=== PATIENT | female | born 1995 | race American Indian/Alaskan Native ===

== ENCOUNTER 2016-12-06 06:00 | Emergency (ER) | payer SELFPAY ==
[2016-12-06 06:40] LABS: Basophils % (Auto) 0.4 % (0.0-1.8); Eosinophils % (Auto) 2.4 % (0.0-4.3); Hematocrit 41.2 % (30.3-42.9); Hemoglobin 14.1 gm/dl (10.1-14.3); Mean Corpuscular HGB Conc 34 % (30-34); Mean Corpuscular Hemoglobin 31 pg (28-32); Mean Corpuscular Volume 89 fl (79-97); Platelet Count 218 K/mm3 (140-440); Red Blood Count 4.61 M/mm3 (3.65-5.03); Red Cell Distribution Width 13.1 % (13.2-15.2); White Blood Count 9.5 K/mm3 (4.5-11.0)
[2016-12-06 07:09] LABS: Alanine Aminotransferase 13 units/L (7-56); Albumin 3.8 g/dL (3.9-5); Albumin/Globulin Ratio 1.2 %; Alkaline Phosphatase 41 units/L (35-129); Anion Gap 17 mmol/L; Bilirubin,Total 0.2 mg/dL (0.1-1.2); Blood Urea Nitrogen 7 mg/dL (7-17); Calcium 8.8 mg/dL (8.4-10.2); Carbon Dioxide 25 mmol/L (22-30); Chloride 98.2 mmol/L (98-107); Glucose 96 mg/dL (65-100); Lipase 37 units/L (13-60); Potassium 4.4 mmol/L (3.6-5.0); Sodium 136 mmol/L (137-145); Total Protein 6.9 g/dL (6.3-8.2)
--- NOTE | 2016-12-06 08:40 | Ultrasound Report ---
ULTRASOUND OB LESS THAN 14 WEEKS HISTORY: Abdominal pain during . FINDINGS: Transabdominal imaging was performed. The uterus is anteverted and measures 13 x 9 x 8 cm. An intrauterine is identified with heart rate measuring 153 beats per minute. Amniotic fluid volume appears normal. [place]-rump length measures 46.3 mm which correlates with a 11 week, 3 day . Estimated due date 06/24/17. A small subchorionic hemorrhage is identified. Both ovaries are visualized and have an unremarkable appearance. No adnexal cyst or mass. IMPRESSION: Viable, single intrauterine as described. Small subchorionic hemorrhage.
[2016-12-06 09:12] LABS: Bilirubin,Urine NEG (Negative); Blood,Urine NEG (Negative); Ketones,Urine NEG (Negative); Leukocyte Esterase,Urine TR (Negative); Mucus,Urine FEW /HPF; Nitrite,Urine NEG (Negative); Protein,Urine <15 mg/dL mg/dL (Negative); Urobilinogen,Urine < 2.0 mg/dL (<2.0)
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
[2016-12-06 12:06] VITALS: BP 120/72
== END 2016-12-06 12:06 | disposition home or self-care (01) ==
LOC: ED 06:00
DX: O21.9 Vomiting of pregnancy, unspecified (principal); R11.0 Nausea; Z3A.11 11 weeks gestation of pregnancy
CPT/HCPCS: 36415; 76801; 80053; 81001; 83690; 84703; 85025

== ENCOUNTER 2017-02-23 19:37 | Outpatient (CLI) | payer MEDICAID ==
[2017-02-23] MEDS ORDERED: LACTATED RINGERS 500 ML IV ONE (19:49)
[2017-02-23 20:07] VITALS: BP 114/65
--- NOTE | 2017-02-25 10:26 | Ultrasound Report ---
ULTRASOUND OB LIMITED History: well being Technique: Transabdominal ultrasound with Doppler interrogation. Gestation: Single Position: Cephalic Placenta: Anterior Placental Grade: 0 No evidence for abruption. Heart Rate: 160 BPM
== END 2017-02-23 20:27 | disposition home or self-care (01) ==
LOC: TRG 19:37
PROVIDERS: ATTEND Obstetrics & Gynecology
DX: O47.02 False labor before 37 completed weeks of gestation, second trimester (principal); Z3A.21 21 weeks gestation of pregnancy
CPT/HCPCS: 76815

== ENCOUNTER 2017-02-23 20:48 | Emergency (ER) | payer OTHER, MEDICAID ==
[2017-02-23 21:05] VITALS: BP 124/78
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
== END 2017-02-23 23:17 | disposition home or self-care (01) ==
LOC: ED 20:48
DX: O9A.212 Injury, poisoning and certain other consequences of external causes complicating pregnancy, second trimester (principal); S16.1XXA Strain of muscle, fascia and tendon at neck level, initial encounter; M62.830 Muscle spasm of back; Z3A.21 21 weeks gestation of pregnancy; V49.9XXA Car occupant (driver) (passenger) injured in unspecified traffic accident, initial encounter; Y93.89 Activity, other specified; Y99.9 Unspecified external cause status; Y92.410 Unspecified street and highway as the place of occurrence of the external cause
CPT/HCPCS: 99282

== ENCOUNTER 2017-05-14 10:13 | Inpatient (IN) | payer MEDICAID ==
[2017-05-14] MEDS ORDERED: CELESTONE SOLUSPAN IM ONE (11:34)
[2017-05-14] MEDS ORDERED: TYLENOL PO PRN (12:00)
[2017-05-14] MEDS ORDERED: ZOFRAN IV PRN (12:00)
[2017-05-14] MEDS ORDERED: COLACE PO PRN (12:00)
--- NOTE | 2017-05-14 12:00 | Consultation ---
History of Present Illness Consult date: 05/14/17 Reason for consult: complicated delivery History of present illness: See full consult from [facility]. Report extracted from [facility] findings. CURRENT PRESENTATION:~~~ Thank you for your recent consultation regarding the above named patient.~ As you are aware, this is a 22 year old para 2002 at 33 weeks followed by [facility] during this due to IUGR (based on an early MELA), a possible VSD and now noted to have oligohydramnios.~ Patient was noted to have oligohydramnios on 05/14/17 at 3.1 cm. Her EFW was 1229 gm (2 pounds 11 oz) which was less than the 3rd percentile. Please note: EFW is based on a previous ultrasound performed at another office other location other than [facility]. Patient was referred to [facility] for review of her possible VSD but has NOT had that follow-up visit. 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 No AP complications. BW: 514 2012 - at term. Elective repeat. No AP complications. BW: 61 ~ ~ Physical Exam on Evaluation:~ Recent BP:~ See notes in chart. ~ HEENT:~ Moderate periorbital edema~ Chest: Clear to auscultation~ Cardiac: Regular rate, rhythm, no appreciable murmur~ Abdomen: Soft, Gravid, non-distended, fundal height c/w EGA~~ General: Patient admits to good movement.~~~ ~ [facility]~ Ultrasonography~~ Pending~ ~ [facility] ULTRASOUND: 05/14/17: IUP AT 33 WEEKS 1 DAY. AUA: 29 weeks 6 days. EFW: 1229 gm (2 pounds 11 oz). 0th percentile. DESIRE: 3.1 cm BPP: 6/10 Nuchal cord. Past History - Obstetrical History : 3 Medications and Allergies Allergies Allergy/AdvReac Type Severity Reaction Status Date / Time No Known Allergies Allergy Verified 07/03/13 13:40 Home Medications Medication Instructions Recorded Confirmed Last Taken Type Acetaminophen/Codeine [Tylenol #3] 1 tab PO Q6H PRN #12 tab 02/23/17 Unknown Rx Active Meds: Active Medications Acetaminophen (Tylenol) 650 mg PO Q4H PRN PRN Reason: Pain MILD(1-3)/Fever >100.5/[place] Betamethasone Acet/Betameth SodPhos (Celestone Soluspan) 12 mg IM Q24HR JONNY Stop: 05/16/17 10:01 Docusate Sodium (Colace) 100 mg PO Q12H PRN PRN Reason: Constipation Lactated Ringer's (Lactated Ringers) 1,000 mls @ 125 mls/hr IV DIRECT JONNY Multivitamins/Iron/Calcium ( Vitamin) 1 each PO QDAY [facility] Ondansetron HCl (Zofran) 4 mg IV Q6H PRN PRN Reason: Nausea And Vomiting - Vital Signs Vital signs: Vital Signs Pulse BP 69 125/69 05/14/17 11:04 05/14/17 11:04 Temp Pulse Resp BP Pulse Ox 98.2 F 71 125/69 97 05/14/17 11:18 05/14/17 11:27 05/14/17 11:04 05/14/17 11:27 Results All other labs normal. Assessment and Plan ASSESSMENT~ This is a patient at 33 weeks referred for admission due to oligohydramnios , severe growth restriction. Possible VSD per previous ultrasound. Unclear EGA. Please Note: EFW is based on a previous ultrasound performed at another office other location other than [facility]. ~ RECOMMENDATIONS:~ We have indicated to the patient that there are a number of medical complications which would require early delivery as a general rule for any gestation. I've indicated that an abnormal FHR tracing, recurrent oligohydramnios, unexplained vaginal bleeding, spontaneous labor, - induced hypertension and other complications would require delivery before an elective delivery. REFERENCE: Medically indicated late- and early-term deliveries. Committee Opinion No. [id number]. [employer]. Obstet Gynecol 2013;[id number]. Would proceed as follows: 1. Given the current findings we would recommend OBSERVATION for this patient. 2. Please follow-up the results of her early ultrasound and change MELA if indicated based on this review. 3. Please provide patient with steroids to enhance lung maturation. 4. Obtain a REPEAT DESIRE in 24 hour 5. Continuous heart rate (FHR) surveillance. 6. We would recommend DELIVERY for abnormal FHR tracing, recurrent oligohydramnios or any other findings. 7. Patient will require a work-up for IUGR following delivery and possible echocardiogram at the preference of the service. 8. We will follow-up with this patient. Thank you for allowing us to participate in the care of this patient. We look forward to the opportunity to assist in her continued management. If you have any questions, we may be reached [phone] ~ ~ ~ ~ Mike Espinosa M.D.~
[2017-05-14] MEDS: CELESTONE SOLUSPAN IM SCH (12:09)
[2017-05-14] MEDS: LACTATED RINGERS 1,000 ML IV SCH ×2 (12:10→20:12)
[2017-05-14 12:33] LABS: Bilirubin,Urine NEG (Negative); Blood,Urine NEG (Negative); Ketones,Urine NEG (Negative); Leukocyte Esterase,Urine NEG (Negative); Mucus,Urine FEW /HPF; Nitrite,Urine NEG (Negative); Protein,Urine <15 mg/dL mg/dL (Negative); Urobilinogen,Urine < 2.0 mg/dL (<2.0)
[2017-05-14 12:44] LABS: Basophils % (Auto) 0.3 % (0.0-1.8); Eosinophils % (Auto) 3.3 % (0.0-4.3); Hematocrit 39.8 % (30.3-42.9); Hemoglobin 13.6 gm/dl (10.1-14.3); Mean Corpuscular HGB Conc 34 % (30-34); Mean Corpuscular Hemoglobin 31 pg (28-32); Mean Corpuscular Volume 91 fl (79-97); Platelet Count 176 K/mm3 (140-440); Red Cell Distribution Width 13.4 % (13.2-15.2); White Blood Count 10.4 K/mm3 (4.5-11.0)
--- NOTE | 2017-05-14 14:17 | History and Physical Report ---
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 Co-managed with [facility] due to IUGR and a suspected ASD and VSD. Previous x 2, desires repeat and BTL. Past History Past Medical History: no pertinent history Past Surgical History: [employer]/uterine surgery (LEEP), section (X2) [employer] History: other (HPV) Family/Genetic History: none Social history: no significant social history, single - Obstetrical History Expected Date of Delivery: 07/01/17 Actual Gestation: 33 Week(s) 1 Day(s) : 3 Para: 2 Hx # Term Pregnancies: 2 Number of Living Children: 2 Medications and Allergies Allergies Allergy/AdvReac Type Severity Reaction Status Date / Time No Known Allergies Allergy Verified 07/03/13 13:40 Home Medications Medication Instructions Recorded Confirmed Last Taken Type Acetaminophen/Codeine [Tylenol #3] 1 tab PO Q6H PRN #12 tab 02/23/17 Unknown Rx Active Meds: Active Medications Acetaminophen (Tylenol) 650 mg PO Q4H PRN PRN Reason: Pain MILD(1-3)/Fever >100.5/[place] Betamethasone Acet/Betameth SodPhos (Celestone Soluspan) 12 mg IM Q24HR JONNY Stop: 05/16/17 10:01 Last Admin: 05/14/17 12:09 Dose: 12 mg Docusate Sodium (Colace) 100 mg PO Q12H PRN PRN Reason: Constipation Lactated Ringer's (Lactated Ringers) 1,000 mls @ 125 mls/hr IV DIRECT JONNY Last Admin: 05/14/17 12:10 Dose: 125 mls/hr Multivitamins/Iron/Calcium ( Vitamin) 1 each PO QDAY JONNY Ondansetron HCl (Zofran) 4 mg IV Q6H PRN PRN Reason: Nausea And Vomiting Review of Systems All systems: negative - Vital Signs Vital signs: Vital Signs Pulse BP 69 125/69 05/14/17 11:04 05/14/17 11:04 Temp Pulse Resp BP Pulse Ox 98.2 F 71 125/69 97 05/14/17 11:18 05/14/17 11:27 05/14/17 11:04 05/14/17 11:27 - Physical Exam Breasts: Positive: normal, mass Lungs: Positive: Clear to auscultation, Normal air movement Abdomen: Positive: normal appearance, soft, normal bowel sounds Genitourinary (Female): Positive: normal external genitalia Vagina: Positive: normal moisture Uterus: Positive: enlarged Anus/Rectum: Positive: normal perianal skin Extremities: Positive: normal - Obstetrical FHR: category 1 Uterine Contraction Monitor Mode: External Uterine Contraction Pattern: Absent Uterine Tone Measurement Phase: Resting Results Result Diagrams: 05/14/17 12:00 All other labs normal. Assessment and Plan A: IUP @ 33 1/7 Weeks Category I Tracing IUGR Oligohydramnios Previous x 2 Desires Sterilization Suspected Cardiac Defect (VSD & ASD) P: Admit to L&D per routine orders Betamethsome Series Continuous Monitoring IV Hydration Consult Consult Repeat DESIRE and 24 hours Delivery recommended is s/s of distress arise Consult with Dr. Rubi
--- NOTE | 2017-05-14 19:04 | Progress Note ---
Subjective - Subjective Date of service: 05/14/17 Principal diagnosis: SIUP at 33 weeks and 1 day with severe IUGR, oligohydramnios, VSD Interval history: This is Dr. Rubi dictating progress note on patient: Karina Sweeney. This patient is a 22 year old , EDC 07/01/17 at 33 weeks and 1 day gestation confirmed by a second trimester ultrasound who was admitted today for severe IUGR and oligohydromanios. She is a patient of [facility] and has been followed by [facility] for IUGR. Today, she had an ultrasound which showed an DESIRE of 3.1 and growth less than the 3rd percentile. S/D ration was 2.9. She was sent for admission for monitoring. Betamethasone first dose has been given. FHT has been a category 1. Patient reports good movement. She denies any contractions, bleeding, or fluid leakage. PMHx: Denies PSHx: 2 c/sections Allergy: Denies Social: + smoking cigarettes. Fam Hx: none. Prenatals: see chart. Labs: H/H stable Assessment: SIUP at 33 weeks 1 day with severe IUGR, oligohydramnios. Previous 2 C/sections. Cat 1 tracing Plan: 1. MFM saw patient today. Plan is to continously monitor the baby, complete betamethasone tomorrow and repeat sonogram for DESIRE in AM. 2. If baby develops any distress, patient will be delivered via Repeat c/ section. Objective - Vital Signs Vital Signs: Vital Signs - 12hr 05/14/17 05/14/17 05/14/17 11:04 11:07 11:12 Temperature Pulse Rate 69 75 76 Blood Pressure 125/69 O2 Sat by Pulse 100 97 Oximetry 05/14/17 05/14/17 05/14/17 11:17 11:18 11:22 Temperature 98.2 F Pulse Rate 83 69 76 Blood Pressure O2 Sat by Pulse 98 97 Oximetry 05/14/17 05/14/17 05/14/17 11:27 14:10 16:41 Temperature 98.2 F Pulse Rate 71 74 68 Blood Pressure 114/57 O2 Sat by Pulse 97 Oximetry - Labs Labs: Laboratory Results - last 24 hr 05/14/17 05/14/17 05/14/17 12:00 12:00 12:00 WBC 10.4 RBC 4.40 Hgb 13.6 Hct 39.8 MCV 91 MCH 31 MCHC 34 RDW 13.4 Plt Count 176 Lymph % (Auto) 21.5 Josephine % (Auto) 7.1 Eos % (Auto) 3.3 Baso % (Auto) 0.3 Lymph # 2.2 Josephine # 0.7 Eos # 0.3 Baso # 0.0 Seg Neutrophils % 67.8 Seg Neutrophils # 7.1 Urine Color Yellow Urine Turbidity Clear Urine pH 7.0 Ur Specific Marion 1.011 Urine Protein <15 mg/dl Urine Glucose (UA) Neg Urine Ketones Neg Urine Blood Neg Urine Nitrite Neg Urine Bilirubin Neg Urine Urobilinogen < 2.0 Ur Leukocyte Esterase Neg Urine WBC (Auto) 1.0 Urine RBC (Auto) 2.0 U Epithel Cells (Auto) 3.0 Urine Mucus Few Blood Type O POSITIVE Antibody Screen Negative
[2017-05-15] MEDS: LACTATED RINGERS 1,000 ML IV SCH (05:17)
[2017-05-15] MEDS ORDERED: PRENATAL VITAMIN PO SCH (10:00)
--- NOTE | 2017-05-15 11:37 | Ultrasound Report ---
ULTRASOUND OB LIMITED History: well being Technique: Transabdominal ultrasound with Doppler interrogation. Gestation: Single Position: Cephalic Amniotic Fluid: Normal DESIRE = 9.4 cm Heart Rate: 135 BPM
--- NOTE | 2017-05-15 11:37 | Ultrasound Report ---
ULTRASOUND BIOPHYSICAL PROFILE: History: well being, IUGR Technique: Transabdominal ultrasound with Doppler interrogation. 2 - breathing movements 2 - movements 2 - posture and tone 2 - Qualitative amniotic fluid volume 8 - TOTAL SCORE OF POSSIBLE 8 Heart Rate (bpm) 129
[2017-05-15] MEDS: CELESTONE SOLUSPAN IM SCH (11:49)
--- NOTE | 2017-05-15 13:32 | Consultation ---
History of Present Illness Reason for consult: other (Thank you for your recent consultation regarding the above named patient.~ As you are aware, this is a 22 year old para 2001 at 33.2 weeks followed by [facility] during this due to IUGR (based on an early MELA), a possible VSD and oligohydramnios. Denies VB, ABD pain , LOF , and regular ctx . 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 History: other (HPV) Family/Genetic History: none - Obstetrical History : 3 Medications and Allergies Allergies Allergy/AdvReac Type Severity Reaction Status Date / Time No Known Allergies Allergy Verified 07/03/13 13:40 Home Medications Medication Instructions Recorded Confirmed Last Taken Type Acetaminophen/Codeine [Tylenol #3] 1 tab PO Q6H PRN #12 tab 02/23/17 Unknown Rx Active Meds: Active Medications Acetaminophen (Tylenol) 650 mg PO Q4H PRN PRN Reason: Pain MILD(1-3)/Fever >100.5/[place] Betamethasone Acet/Betameth SodPhos (Celestone Soluspan) 12 mg IM Q24HR JONNY Stop: 05/16/17 10:01 Last Admin: 05/15/17 11:49 Dose: 12 mg Docusate Sodium (Colace) 100 mg PO Q12H PRN PRN Reason: Constipation Last Admin: 05/14/17 20:48 Dose: 100 mg Lactated Ringer's (Lactated Ringers) 1,000 mls @ 125 mls/hr IV DIRECT JONNY Last Admin: 05/15/17 05:17 Dose: 125 mls/hr Multivitamins/Iron/Calcium ( Vitamin) 1 each PO QDAY JONNY Ondansetron HCl (Zofran) 4 mg IV Q6H PRN PRN Reason: Nausea And Vomiting Review of Systems Constitutional: no fever, no chills Eyes: deferred Cardiovascular: no rapid/irregular heart beat, no edema, no syncope, no shortness of breath Respiratory: no shortness of breath Breasts: deferred Gastrointestinal: no abdominal pain Genitourinary: no vaginal bleeding, no vaginal discharge, no leakage of fluid, no pelvic pain, no genital sores, no contractions Musculoskeletal: no low back pain Integumentary: no rash Neurological: no seizures Endocrine: no polyuria Hematologic/Lymphatic: no easy bruising, no easy bleeding Allergic/Immunologic: no wheezing - Vital Signs Vital signs: Vital Signs Pulse BP 69 125/69 05/14/17 11:04 05/14/17 11:04 Temp Pulse Resp BP Pulse Ox 98 F 74 20 108/59 99 05/15/17 08:10 05/15/17 08:13 05/15/17 08:10 05/15/17 08:13 05/14/17 20:13 - Physical Exam Breasts: Positive: deferred Cardiovascular: Regular rate Lungs: Positive: Normal air movement Abdomen: Negative: tenderness, guarding Uterus: Positive: other (gravid ). Negative: tender Extremities: Negative: tenderness Deep Tendon Reflex Grade: Normal +2 - Obstetrical FHR: category 1 Uterine Contraction Monitor Mode: External Uterine Contraction Pattern: Absent Results Result Diagrams: 05/14/17 12:00 All other labs normal. Ultrasound: report reviewed ([facility] 05/15/17 IUP 33.2 weeks VTX + FHT DESIRE of [address] [facility] 8/8 ) Assessment and Plan ASSESSMENT~ 1. Patient at 33.2 weeks referred for admission due to oligohydramnios, severe growth restriction. 2. Possible VSD per previous ultrasound. ( Non compliant with [facility] referral) 3. LPNC 4. Previous C/S x 2 5. LEEP procedure 6. Unclear EGA. 7. Please Note: EFW is based on a previous ultrasound performed at another office other location other than [facility]. 8. [facility] 8/8 9. [facility] U/S Appropriate DESIRE of 9.4 cm 10. S/P BMZ for FLM RECOMMENDATIONS:~ We have indicated to the patient that there are a number of medical complications which would require early delivery as a general rule for any gestation. I've indicated that an abnormal FHR tracing, recurrent oligohydramnios, unexplained vaginal bleeding, spontaneous labor, - induced hypertension and other complications would require delivery before an elective delivery. REFERENCE: Medically indicated late- and early-term deliveries. Committee Opinion No. [id number]. [employer]. Obstet Gynecol 2013;[id number]. Would proceed as follows: 1. Given the current findings we would recommend consideration for discharge with twice weekly [facility] surveillance 2. Please follow-up the results of her early ultrasound and change MELA if indicated based on this review. 3. Please provide patient with steroids to enhance lung maturation. 4. Patient will require a work-up for IUGR following delivery and possible echocardiogram at the preference of the service. 5. We will follow-up with this patient.- Appt scheduled for 05/17/17 at 9 am 6. Patient encouraged to reschedule appt with Lai Bolanos
[2017-05-15 14:04] VITALS: BP 116/62
--- NOTE | 2017-05-16 01:24 | Discharge Summary ---
DISCHARGE DIAGNOSES: Single intrauterine at 32 weeks and 2 days gestation with severe IUGR and oligohydramnios. HISTORY OF PRESENT ILLNESS: This patient is a 22-year-old female 3, para 2-0-0-2. Last period was 09/12/2016, EDC 07/01/2017 who was admitted yesterday at 33 weeks and 1 day gestation from the perinatology office for severe IUGR and oligohydramnios. This patient has a history of IUGR and she was being monitored by [facility] group. She went yesterday for a routine followup ultrasound and her DESIRE was found to be 3.1 and the growth was less than the third percentile. At that time, she was sent to the hospital to be admitted for continuous monitoring. IV hydration was given, Betamethasone first dose was given and the plan was to do continuous monitoring and complete betamethasone series today, and repeat the ultrasound. Since admission, the patient had reported good movement. She denies any contractions, bleeding , or fluid leakage from vagina. She has been tolerating regular diet well and heart tracing has been in the 120s to 130s with accelerations. No deceleration seen. No contractions on the monitor. Vital signs have been stable. Hemoglobin and hematocrit also were stable. She was seen by the MFM yesterday. Today, she had a followup ultrasound. The DESIRE was 9.8, vertex presentation. Biophysical profile 04/03. The MFM came to see the patient again today. The decision to discharge the patient today was made. An appointment has been made for her to follow up with the Perinatology group on 05/17/2017. Labor precautions were given. She also completed the steroid second dose today. She is currently stable with normal vital signs and she is being discharged home. JOB# [id number] MITUL/EDISON ROSADO
--- NOTE | 2017-05-16 08:35 | Physician Progress Note ---
SUBJECTIVE: This patient is a 22-year-old female, who is 3, para 2-0-0-2. Last period was 09/12/2016, due date 07/01/2017, who is today at 33 weeks and 1 day gestation, confirmed by second trimester ultrasound, who was admitted directly from the [facility] for severe IUGR and oligohydramnios. This patient is a patient of [facility], who has been having weekly consult with the [facility] group for suspected IUGR earlier in the . She went for a routine visit and she had an ultrasound, which showed growth to be less than 3rd percentile and an DESIRE of 3.1. Therefore, she was sent for direct admission. On arrival, she did report some lower abdominal cramping. Otherwise, she denies any bleeding or fluid leakage per vagina. She reported good movement. On admission, heart tracing was in the 120s to 130s with accelerations, not reactive initially. Later on, after IV hydration tracing had become a CAT 1 tracing. She was given betamethasone for lung maturity. She was continued on IV hydration. Initial lab work showed stable hemoglobin and hematocrit. Pelvic exam, which was done by the lamp developer showed a closed cervix, which was long and posterior, no bleeding, no fluid leakage. The [facility] doctor did come and see the patient after the admission and wanted to have a repeat ultrasound with DESIRE done today 2016. This AM, this patient denied any contractions. She reported good movement. When I saw her, she was tolerating regular diet very well. I did go over the plan again with her. She expressed understanding that in light of severe IUGR and oligohydramnios, if the repeat ultrasound on 05/15/2017 were to show similar findings, she will be delivered via repeat section. She expressed understanding. JOB# [id number] MITUL/EDISON ROSADO
--- NOTE | 2017-05-16 11:46 | Physician Progress Note ---
SUBJECTIVE: This patient is a 22-year-old female, 3, para 2-0-0-2 who was admitted yesterday on 05/14/2017 at 33 weeks and 1 day gestation for severe IUGR and oligohydramnios. On admission, she was given IV fluids, given betamethasone first dose and continuous monitoring was started and the plan at that time was to do a repeat ultrasound for DESIRE today. She had an ultrasound today and the DESIRE was 9.8 cm. Throughout the admission, the heart tracing has been reactive. No deceleration was seen and the patient reported good movement this morning. OBJECTIVE: VITAL SIGNS: Blood pressure 108/59, heart rate 74, temperature 98 degrees Fahrenheit and heart rate 127 beats per minute. PLAN: Today is for the [facility] to return and evaluate ultrasound, which is ordered. We will continue current management. JOB# [id number] KV/NTS
== END 2017-05-15 16:30 | disposition home or self-care (01) | DRG 782 ==
LOC: TRG 10:13 → LD 10:14 → TRG 11:20
PROVIDERS: ADMIT Obstetrics & Gynecology; ATTEND Obstetrics & Gynecology
DX: O41.03X0 Oligohydramnios, third trimester, not applicable or unspecified (principal); O36.5930 Maternal care for other known or suspected poor fetal growth, third trimester, not applicable or unspecified; O76 Abnormality in fetal heart rate and rhythm complicating labor and delivery; O34.211 Maternal care for low transverse scar from previous cesarean delivery; O99.333 Smoking (tobacco) complicating pregnancy, third trimester; F17.200 Nicotine dependence, unspecified, uncomplicated; Z30.2 Encounter for sterilization; Z3A.33 33 weeks gestation of pregnancy
CPT/HCPCS: 36415; 76815; 76819; 81001; 85025; 86850; 86900; 86901; J0702; J7120

== ENCOUNTER 2017-05-18 13:02 | Outpatient (CLI) | payer MEDICAID ==
[2017-05-18] MEDS ORDERED: LACTATED RINGERS 1,000 ML IV ONE (13:46)
[2017-05-18] MEDS ORDERED: ZOFRAN IV ONE (13:59)
[2017-05-18 15:04] LABS: Hematocrit 32.6 % (30.3-42.9); Hemoglobin 11.3 gm/dl (10.1-14.3); Mean Corpuscular HGB Conc 35 % (30-34); Mean Corpuscular Hemoglobin 31 pg (28-32); Mean Corpuscular Volume 90 fl (79-97); Platelet Count 147 K/mm3 (140-440); Red Blood Count 3.61 M/mm3 (3.65-5.03); Red Cell Distribution Width 13.2 % (13.2-15.2); White Blood Count 13.9 K/mm3 (4.5-11.0)
--- NOTE | 2017-05-18 15:17 | Ultrasound Report ---
OB LIMITED INDICATION: DESIRE. COMPARISON: 05/15/2017 TECHNIQUE: Transabdominal grayscale ultrasound with Doppler interrogation. Gestation: Meyers Position: Cephalic Amniotic Fluid: Decreased (< 7 cm) DESIRE = 6 cm Heart Rate: 138 BPM
[2017-05-18 15:28] VITALS: BP 108/62
[2017-05-18 16:16] LABS: Blastocytes % (Manual) 0 %
[2017-05-18 16:19] LABS: Diff Status Complete; Platelet Estimate Consistent w Auto
== END 2017-05-18 15:40 | disposition home or self-care (01) ==
LOC: TRG 13:02
PROVIDERS: ATTEND Obstetrics & Gynecology
DX: O47.03 False labor before 37 completed weeks of gestation, third trimester (principal); Z3A.33 33 weeks gestation of pregnancy
CPT/HCPCS: 36415; 59025; 76815; 85007; 85025; 96360; 96374; J2405; J7120

== ENCOUNTER 2017-05-31 14:59 | Inpatient (IN) | payer MEDICAID ==
[2017-05-31] MEDS ORDERED: PHENERGAN PR PRN (17:15)
[2017-05-31] MEDS ORDERED: NARCAN 0.4 MG/1 ML IV PRN ×2 (17:15→19:58)
[2017-05-31] MEDS ORDERED: ZOFRAN IV PRN (17:15)
[2017-05-31] MEDS ORDERED: DILAUDID IV PRN (17:15)
--- NOTE | 2017-05-31 17:15 | Anesthesia Consultation ---
Anesthesia Consult and Med Hx Date of service: 05/31/17 - Airway Anesthetic Teeth Evaluation: Good, Partials ROM Head & Neck: Adequate Mallampati Class: Class II Intubation Access Assessment: Probably Good - Pre-Operative Health Status ASA Pre-Surgery Classification: ASA2 Proposed Anesthetic Plan: Epidural, Spinal - Pulmonary Hx Smoking: No Hx Asthma: No Hx Respiratory Symptoms: Yes (cough- recent bronchitis and antibiotics. clear breath sounds) COPD: No Hx Pneumonia: No - Cardiovascular System Hx Hypertension: No Hx Heart Attack/AMI: No Hx Angina: No - Central Nervous System Hx Seizures: No CVA: No Hx Psychiatric Problems: No - Endocrine Hx Renal Disease: No Hx End Stage Renal Disease: No Hx Hypothyroidism: No Hx Hyperthyroidism: No - Hematic Hx Anemia: No Hx Sickle Cell Disease: No - Other Systems Hx Alcohol Use: No
--- NOTE | 2017-05-31 17:15 | Anesthesia Day of Surgery ---
Anesthesia Day of Surgery - Day of Surgery Patient Examined: Yes Patient H&P Reviewed: Yes Patient is NPO: Yes
[2017-05-31] MEDS ORDERED: TORADOL IV PRN (17:16)
--- NOTE | 2017-05-31 17:59 | History and Physical Report ---
History of Present Illness Date of examination: 05/31/17 Date of admission: 05/31/17 14:59 Chief complaint: 1. 22 years old female not in labor. 2. Severe IUGR. 3. Oligohydramnios. 4. Previous 2 sections. History of present illness: This patient is a 22-year-old female , EDC 07/01/2017 who is at 35 weeks and 4 days gestation who was sent from the perinatology office for severe IUGR and oligohydramnios. This patient is a patient of [facility] and follows weekly with a [facility] for a history of IUGR and VSD on echo. Today, she went over there for a routine visit. NST was reactive, BPP was 8 out of 8. Sonogram showed no interval growth from 4 weeks ago and DESIRE of 4. Therefore, the patient was sent for admission and delivery. The patient denies any contractions, fluid leakage, or bleeding per vagina. She reported good movement. Past medical history: denies. Past surgical history: section 2. Allergies: NKDA. Social history: denies any smoking, alcohol, drug abuse,. Medications: vitamins. Family history: denies. 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 Pap smear normal. Obstetric history: 2011-Full term, section for cervical wart, wt 5 lbs. 14 oz. [facility]. No complications. 2013- Full-term, repeat , female, 6 lbs 11 oz., [facility]. No complications. Review of systems: as above Physical exam: General: No acute distress HEENT: normal. Breast: deferred. Exr: No E, no calf TN, no Brayden's sign. Vital signs: temperature 97.8F, blood pressure 103/71, heart rate 77, RR 18. Abdomen: soft, nontender, gravid Extremities: no edema and an additional Homans sign. Pelvic exam: cervix is closed/ long/ posterior, no bleeding. heart tracins beats per minutes reactive. Sidman: no contractions. Labs: pending. Sonogram at bedside: Single intrauterine gestation in a vertex presentation. Assessment 1. SIUP at 35 weeks and 4 days gestation not in labor. 2. Severe IUGR. 3. Oligohydramnios. 4. H/O 2 previous sections. 5. Baby has VSD. Plan 1. Admit to labor and delivery. 2. Dr. Bernard from [facility] discussed this patient with me and he recommended that this patient be delivered today for severe IUGR and oligohydramnios. He did discuss the risk of continuing with this with the patient. She understands the need for delivery. 3. Will send admitting lab. Start IV fluids. 4. heart tracing monitoring. 5. Anesthesia has been notified. 6. Peds to be notifed of VSD. Past History - Obstetrical History : 3 Medications and Allergies Allergies Allergy/AdvReac Type Severity Reaction Status Date / Time No Known Allergies Allergy Verified 05/18/17 13:40 Home Medications Medication Instructions Recorded Confirmed Last Taken Type Acetaminophen/Codeine [Tylenol #3] 1 tab PO Q6H PRN #12 tab 02/23/17 05/18/17 21:00 Rx 1 Ondansetron [Zofran TAB] 4 mg PO Q8HR PRN 05/18/17 05/18/17 05/17/17 22:00 History 1 Active Meds: Active Medications Diphenhydramine HCl (Benadryl) 12.5 mg IV Q2H PRN PRN Reason: Itching Hydromorphone HCl (Dilaudid) 0.5 mg IV Q4H PRN PRN Reason: breakthrough pain > 7/10 Lactated Ringer's (Lactated Ringers) 1,000 mls @ 125 mls/hr IV DIRECT JONNY Ketorolac Tromethamine (Toradol) 30 mg IV Q6H PRN PRN Reason: Pain, Moderate (4-6) Stop: 06/05/17 17:15 Naloxone HCl (Narcan 0.4 Mg/1 Ml) 0.2 mg IV Q2MIN PRN PRN Reason: Res Rate </= 8 or 02 SAT < 92% Stop: 06/02/17 17:16 Ondansetron HCl (Zofran) 4 mg IV Q8H PRN PRN Reason: Nausea And Vomiting Promethazine HCl (Phenergan) 25 mg [place] Q6H PRN PRN Reason: Nausea And Vomiting Sodium Chloride (Sodium Chloride Flush Syringe 10 Ml) 10 ml IV PRN NR Stop: 06/01/17 17:59 - Vital Signs Vital signs: Vital Signs Temp Pulse Resp BP Pulse Ox 97.8 F 81 18 115/65 99 05/31/17 16:20 05/31/17 16:20 05/31/17 16:20 05/31/17 16:20 05/31/17 16:20 Temp Pulse Resp BP Pulse Ox 97.8 F 77 18 103/71 99 05/31/17 16:20 05/31/17 16:52 05/31/17 16:20 05/31/17 16:52 05/31/17 16:20 Results All other labs normal.
[2017-05-31] MEDS ORDERED: SODIUM CHLORIDE FLUSH SYRINGE 10 ML IV NR ×2 (18:00→20:00)
[2017-05-31] MEDS ORDERED: LACTATED RINGERS 1,000 ML IV SCH (18:00)
[2017-05-31 18:11] LABS: Hematocrit 35.3 % (30.3-42.9); Mean Corpuscular HGB Conc 34 % (30-34); Mean Corpuscular Hemoglobin 31 pg (28-32); Mean Corpuscular Volume 90 fl (79-97); Platelet Count 141 K/mm3 (140-440); Red Blood Count 3.91 M/mm3 (3.65-5.03); Red Cell Distribution Width 13.4 % (13.2-15.2); White Blood Count 10.2 K/mm3 (4.5-11.0)
[2017-05-31] MEDS ORDERED: PITOCin/NS 20 UNIT/1000ML DRIP 20,000 MILLIUNITS/1,000 ML BAG IV ONE (18:41)
[2017-05-31] MEDS ORDERED: REGLAN ONE (18:41)
[2017-05-31] MEDS ORDERED: PEPCID IV ONE (18:42)
[2017-05-31] MEDS ORDERED: BICITRA ONE (18:43)
[2017-05-31] MEDS ORDERED: NACL 0.9% IR ONE (18:45)
[2017-05-31] MEDS ORDERED: WATER FOR IRRIG STERILE IR ONE (18:45)
[2017-05-31] MEDS ORDERED: MORPHINE ONE (18:49)
[2017-05-31] MEDS ORDERED: ZOFRAN ONE (19:32)
[2017-05-31] MEDS ORDERED: NACL 0.9% 1000 ML 1,000 ML ONE (19:47)
--- NOTE | 2017-05-31 19:56 | Operative Report ---
Operative Report Operative Report: Date of procedure: 05/31/2017 Pre-operative diagnosis: 1. Intrauterine at 35-4/7 weeks 2. Severe IUGR 3. Oligohydramnios 4. Previous 2 Post-operative diagnosis: Same Procedure name(s): Repeat low transverse section Surgeon: Joseph Espino MD Group Fitness Instructor: None Anesthesia: Spinal epidural anesthesia by Dr. Montanez EBL: 600 mls Findings: A 1387 g male intubated and taken to the NICU. Clear amniotic fluid. Normal uterus. Normal tubes and ovaries bilaterally. Procedure: After the patient was prepped and draped in usual sterile fashion, and after satisfactory level of epidural anesthesia was obtained, the skin knife was used to make a transverse skin incision through the previous skin scars. The incision was excised down to layer of the fascia, which was nicked in the midline and extended laterally using the Bovie cautery. The rectus muscles were dissected off the rectus fascia both superiorly and inferiorly. The rectus bellies in the midline, and the peritoneum was entered under direct visualization. The peritoneal incision was extended superiorly and inferiorly. A bladder flap was created and the bladder blade was then placed. The uterus was scored in a curvilinear linear fashion, entered in the midline revealing clear amniotic fluid. The infant's head was delivered onto the surgical field, and the oropharynx and nasopharynx were bulb suctioned. The rest of the 's body was delivered, cord was doubly clamped and cut and the was handed to the waiting respiratory team. Cord blood was then obtained. The placenta was manually removed from the uterus, and the uterus removed from its normal anatomical position. After gentle uterine lavage, the incision was inspected and found to be without extensions. It was then closed in 2 layers using 0 Vicryl suture in a running interlocking fashion, the second layer imbricating the first. After good hemostasis was achieved, copious amounts or irrigation was performed, and the gutters were suctioned free of blood and blood clots. The Tisseel sealant was sprayed across the uterine incision. The uterus was then returned to its normal anatomical position, and after excellent hemostasis assured, the peritoneum was re-approximated using 3- 0 Vicryl suture in a running interlocking fashion, and then the rectus muscles were re-approximated using 3-0 Vicryl suture in a [id number] configuration. The fascia was then re-approximated using 0 Vicryl suture in running interlocking fashion. The subcutaneous layer was made hemostatic using Bovie cautery, the Tisseel sealant was sprayed across the fascial incision and the skin edges re-approximated using 4-0 Vicryl suture in a sub-cuticular fashion. Patient tolerated the procedure well was transported to recovery in stable condition.
[2017-05-31] MEDS ORDERED: TYLENOL PO PRN (19:58)
[2017-05-31] MEDS ORDERED: NORCO 5/325 PO PRN (19:58)
[2017-05-31] MEDS ORDERED: MILK OF MAGNESIA PO PRN (19:58)
[2017-05-31] MEDS ORDERED: SENOKOT PO PRN (19:58)
[2017-05-31] MEDS ORDERED: MYLICON PO PRN (19:58)
[2017-05-31] MEDS ORDERED: LANSINOH TP PRN (19:58)
[2017-05-31] MEDS ORDERED: TUCKS PAD TP PRN (19:58)
[2017-05-31] MEDS ORDERED: PITOCin/NS 20 UNIT/1000ML DRIP 20 UNITS/1,000 ML BAG IV SCH (20:00)
[2017-05-31] MEDS ORDERED: PITOCin/NS 20 UNIT/1000ML DRIP IV ONE (20:00)
[2017-05-31] MEDS ORDERED: D5LR 1,000 ML IV SCH (20:00)
[2017-05-31] MEDS: BENADRYL IV PRN (21:45)
[2017-06-01] MEDS: BENADRYL IV PRN (00:31)
[2017-06-01] MEDS: ANCEF/NS 1 GM/50 ML 1 GM/50 ML BAG IV SCH ×2 (02:53→10:40)
--- NOTE | 2017-06-01 08:15 | Progress Note ---
Subjective Date of service: 06/01/17 Interval history: 1st POD after Patient is in the bed, comfortable. Pain is well controlled with pain meds. Has not ambulated yet, has Walls catheter in. No residual neurological deficit. Pruritus is not significant. No anesthesia complications Objective - Constitutional Vitals: Vital Signs - 12hr 05/31/17 05/31/17 06/01/17 21:50 22:15 00:00 Temperature 97.5 F L 98.6 F 98.6 F Pulse Rate 75 81 62 Respiratory 18 16 18 Rate Blood Pressure 105/63 Blood Pressure 108/70 107/61 [Left] O2 Sat by Pulse 100 Oximetry 06/01/17 06/01/17 04:00 04:20 Temperature 98.6 F Pulse Rate 76 Respiratory 16 18 Rate Blood Pressure Blood Pressure 112/69 [Left] O2 Sat by Pulse Oximetry - Labs CBC & Chem 7: 05/31/17 18:00
[2017-06-01 08:17] LABS: Hematocrit 33.8 % (30.3-42.9); Hemoglobin 11.9 gm/dl (10.1-14.3)
[2017-06-01] MEDS: PERCOCET 5/325 PO PRN ×3 (08:45→23:47)
--- NOTE | 2017-06-01 09:00 | Progress Note ---
Assessment and Plan A: Repeat , IUGR POD #1 P: Continue Post op care Subjective - Subjective Date of service: 06/01/17 Principal diagnosis: Repeat , IUGR Patient reports: appetite normal : in NICU Objective - Vital Signs Latest vital signs: Vital Signs Temp Pulse Resp BP BP Pulse Ox 06/01/17 04:20 18 06/01/17 04:00 98.6 F 76 16 112/69 06/01/17 00:00 98.6 F 62 18 107/61 05/31/17 22:15 98.6 F 81 16 108/70 05/31/17 21:50 97.5 F L 75 18 105/63 100 05/31/17 16:52 77 103/71 05/31/17 16:20 97.8 F 81 18 115/65 99 Intake and Output 05/31/17 06/01/17 06/01/17 22:59 06:59 14:59 Intake Total 2300 250 Output Total 250 1400 Balance 2050 -1150 Intake: IV 2000 Oral 250 Intake, Free Water 300 Output: Urine 250 1400 Indwelling Catheter 1400 Other: Total, Intake Amount 250 Total, Output Amount 600 Weight 168 lb - Exam Breasts: Present: deferred Cardiovascular: Present: Regular rate Lungs: Present: Clear to auscultation Abdomen: Present: soft Vulva: both: normal Uterus: Present: fundal height below umbilicus Extremities: Present: normal Deep Tendon Reflex Grade: Normal +2
[2017-06-01] MEDS ORDERED: ANCEF/NS 1 GM/50 ML 1 GM/50 ML BAG IV SCH (11:00)
[2017-06-01] MEDS: PRENATAL VITAMIN PO SCH (11:04)
[2017-06-01] MEDS: FEOSOL PO SCH (11:04)
[2017-06-01] MEDS: MOTRIN PO PRN ×2 (13:09→21:45)
[2017-06-01] MEDS: BENADRYL PO PRN ×2 (14:17→21:17)
[2017-06-01] MEDS ORDERED: M-M-R II VACCINE SUB-Q ONE (19:59)
[2017-06-01] MEDS ORDERED: BOOSTRIX IM ONE (19:59)
[2017-06-02] MEDS: PERCOCET 5/325 PO PRN ×3 (05:36→22:03)
--- NOTE | 2017-06-02 10:41 | Progress Note ---
Assessment and Plan A: /postop day 2. P: Anticipate discharge tomorrow. Subjective - Subjective Date of service: 06/02/17 Principal diagnosis: /postop day 2 S/P low transverse section Interval history: Patient is /postop day 2 S/P low transverse section. Patient is doing well. She reports small amount of lochia. Ambulating well, tolerating a regular diet, passing gas, and voiding without difficulty. Baby is in NICU. Patient denies headache, chest pain, cough, abdominal pain, nausea/vomiting, leg pain, large clots, or signs of depression. Patient reports: appetite normal, voiding normally, pain well controlled, ambulating normally [place]: doing well, in NICU Objective - Vital Signs Latest vital signs: Vital Signs Temp Pulse Resp BP 06/02/17 08:00 97.6 F 62 17 98/60 06/02/17 05:36 20 06/02/17 01:02 98.4 F 84 20 128/69 06/01/17 23:47 20 06/01/17 21:45 20 06/01/17 16:45 97.5 F L 78 18 118/72 06/01/17 12:50 97.8 F 72 18 115/70 Intake and Output 06/01/17 06/02/17 06/02/17 23:59 07:59 15:59 Intake Total 360 240 120 Output Total 500 Balance -140 240 120 Intake: Oral 240 120 Intake, Free Water 120 240 Output: Urine 500 Void 500 Other: Total, Intake Amount 240 120 Total, Output Amount 500 # Voids Indwelling Catheter 1 Void 2 Estimated Blood Loss 700 - Exam Breasts: Present: deferred Cardiovascular: Present: Regular rate Lungs: Present: Clear to auscultation Abdomen: Present: normal appearance, soft, normal bowel sounds. Absent: distention, tenderness, guarding Uterus: Present: normal, firm, fundal height below umbilicus. Absent: bogginess , tenderness Extremities: Present: normal. Absent: tenderness, edema Incision: Present: dry, intact, dressed
[2017-06-02] MEDS: PRENATAL VITAMIN PO SCH (11:22)
[2017-06-02] MEDS: FEOSOL PO SCH (11:22)
[2017-06-02] MEDS: MOTRIN PO PRN ×2 (12:47→22:04)
[2017-06-03] MEDS: MOTRIN PO PRN ×2 (08:19→20:49)
[2017-06-03] MEDS: PERCOCET 5/325 PO PRN (08:20)
--- NOTE | 2017-06-03 08:40 | Progress Note ---
Assessment and Plan A: /postop day 3 S/P low transverse section. P: Discharge patient home today. discharge instructions and warning signs were discussed with patient. Advised patient to avoid IC for 6-8 weeks, avoid heavy housework and lifting for 6-8 weeks, and avoid driving for 1 month. Advised patient to follow up at [facility] office in 1 week for incision check. Patient voiced understanding of above instructions. Subjective - Subjective Date of service: 06/03/17 Principal diagnosis: /postop day 3 S/P low transverse section Interval history: /postop day 3 S/P low transverse section. Patient is doing well. Baby is in NICU. Patient is voiding without difficulty and passing gas. Ambulating well. Tolerating a regular diet without nausea or vomiting. Patient reports small amount of lochia. Patient denies headache, shortness of breath, chest pain, abdominal pain, leg pain, heavy vaginal bleeding, or symptoms of depression. Patient is planning to use Mirena IUD for contraception at 6-8 weeks . Patient reports: appetite normal, voiding normally, pain well controlled, flatus , ambulating normally [place]: doing well, in NICU Objective - Vital Signs Latest vital signs: Vital Signs Temp Pulse Resp BP 06/03/17 08:20 18 06/03/17 08:19 18 06/03/17 00:50 98 F 65 126/70 06/02/17 16:50 97.9 F 86 18 128/74 06/02/17 12:47 18 Intake and Output 06/02/17 06/03/17 06/03/17 23:59 07:59 15:59 Intake Total 240 480 Balance 240 480 Intake: Oral 240 Intake, Free Water 480 Other: Total, Intake Amount 240 # Voids Indwelling Catheter 3 Void 1 2 - Exam Breasts: Present: deferred Cardiovascular: Present: Regular rate, Normal S1, Normal S2 Lungs: Present: Clear to auscultation Abdomen: Present: normal appearance, soft, normal bowel sounds. Absent: distention, tenderness, guarding, rigidity Uterus: Present: normal, firm, fundal height below umbilicus. Absent: bogginess , tenderness Extremities: Present: normal. Absent: tenderness, edema Incision: Present: normal, dry, intact
--- NOTE | 2017-06-03 08:46 | Discharge Summary ---
Providers - Providers Date of Admission: 05/31/17 14:59 Date of discharge: 06/03/17 Attending physician: Joseph Espino MD 06/02/17 13:15 Consult to Case Management [CONS] Urgent Services Needed at Discharge: [facility] Notified:: yes Phone number called:: [phone] Was contact made?: Yes If yes, spoke with:: Charlene Time called:: 13:17 Additional Physician Instructions: Patient requests consult Primary care physician: ROSAURA WIGGINS MD Hospitalization Reason for admission: active labor, IUP - , section, other (IUGR , oligohydramnios) Delivery: Procedure: repeat low transverse Incision: normal, dry, intact Other procedures: none complications: none Discharge diagnosis: other ( IUP delivered) [place] baby: male Pertinent studies: Labs Hospital course: Normal hospital course Condition at discharge: Good Disposition: DC-01 TO HOME OR SELFCARE - Discharge Diagnoses (1) delivery Status: Acute (2) Status post section Status: Acute Plan - Discharge Medications Prescriptions: Ferrous Sulfate [Feosol 325 MG tab] 325 mg PO BID #60 tablet HYDROcodone/APAP 5-325 [[place] 5/325] 1 each PO Q6HR PRN #30 tablet PRN Reason: Pain Ibuprofen [Motrin] 800 mg PO Q8HR PRN #30 tablet PRN Reason: Moder Pain Unrelieved By [place] Pnv No.95/Ferrous Fum/Folic AC [Prenavite Tablet] 1 each PO DAILY #30 tablet - Provider Discharge Summary Activity: routine, no sex for 6 weeks, no heavy lifting 4 weeks, no strenuous exercise, other (no driving for 4 weeks) Instructions: routine Additional instructions: [ Call your doctor immediately for: * Fever > 100.5 * Heavy vaginal bleeding ( >1 pad per hour) * Severe persistent headache * Shortness of breath * Reddened, hot, painful area to leg or breast * Drainage or odor from incision. * Keep incision clean and dry at all times and follow doctor's instructions regarding bathing/showering - Follow up plan Follow up: ROSAURA WIGGINS MD [Primary Care Provider] - 7 Days
[2017-06-03] MEDS: PRENATAL VITAMIN PO SCH (10:47)
[2017-06-03] MEDS: FEOSOL PO SCH (10:47)
[2017-06-03] MEDS ORDERED: BOOSTRIX IM ONE (12:00)
[2017-06-03 19:30] VITALS: BP 120/69
== END 2017-06-03 21:54 | disposition home or self-care (01) | DRG 765 ==
LOC: APU 14:59 → OB 22:55
PROVIDERS: ADMIT Obstetrics & Gynecology; ATTEND Obstetrics & Gynecology
PROC: 10D00Z1 Extraction of Products of Conception, Low, Open Approach (ICD-10-PCS; principal; 2017-05-31)
PROC: 3E0234Z Introduction of Serum, Toxoid and Vaccine into Muscle, Percutaneous Approach (ICD-10-PCS; 2017-06-02)
DX: O34.211 Maternal care for low transverse scar from previous cesarean delivery (principal); O60.14X0 Preterm labor third trimester with preterm delivery third trimester, not applicable or unspecified; O41.03X0 Oligohydramnios, third trimester, not applicable or unspecified; O36.5930 Maternal care for other known or suspected poor fetal growth, third trimester, not applicable or unspecified; Z3A.35 35 weeks gestation of pregnancy; Z37.0 Single live birth; Z23 Encounter for immunization; O36.8930 Maternal care for other specified fetal problems, third trimester, not applicable or unspecified
CPT/HCPCS: 36415; 85014; 85018; 85027; 86592; 86850; 86900; 86901; 88307; 90471; 90715; 99211; A6250; C9250; G0463; J0690; J1200; J1885; J2270; J2405; J2590; J2765; J7030; J7120; J7121

== ENCOUNTER 2018-10-24 12:56 | Emergency (ER) | payer MEDICAID, OTHER ==
[2018-10-24 13:11] VITALS: BP 125/68
--- NOTE | 2018-10-24 13:11 | Emergency Department Report ---
Blank Doc - Documentation Documentation: c/o left hand pain time 1 week. No trauma. This initial assessment diagnostic orders/clinical plan/treatment (s) is/Are subject change based on patient's health status, clinical progression and re- assessment by fellow clinical providers in the ED. Further treatment and work-up at subsequent clinical providers discretion. Patient/guardians urged not to elope from their condition may be serious if not clinically assessed and managed. Initial order include:
--- NOTE | 2018-10-24 14:18 | XRay Report ---
LEFT HAND, 2 views: History: Left hand pain. The bony architecture is intact. Bony alignment is normal. No soft tissue abnormalities are seen. The joint spaces appear preserved. IMPRESSION: Normal left hand.
--- NOTE | 2018-10-24 14:57 | Emergency Department Report ---
ED Extremity Problem HPI - General Chief complaint: Extremity Problem,Nontraumatic Stated complaint: LFT HAND INJURY/PAIN Time Seen by Provider: 10/24/18 13:08 Source: patient Mode of arrival: Ambulatory Limitations: No Limitations - History of Present Illness Initial comments: Patient is a 23-year-old female said swelling and pain to the left hand for approximately. Patient states is nontraumatic she's had no injury. Patient states that the hand is swollen just proximal to the PIP joint on the dorsum and volar surfaces. Patient feels a small lump underneath the skin at the level of the fourth digit in the distal third of the palm. Patient denies any fevers chills nausea vomiting. Patient states the pain is worse with movement of the hand and is 8 out of 10 in severity. Severity scale (0 -10): 10 - Related Data Home Medications Medication Instructions Recorded Confirmed Last Taken Ondansetron [Zofran TAB] 4 mg PO Q8HR PRN 05/18/17 05/31/17 3 Days Ago ~05/28/17 Previous Rx's Medication Instructions Recorded Last Taken Type Acetaminophen/Codeine [Tylenol #3] 1 tab PO Q6H PRN #12 tab 02/23/17 3 Days Ago Rx ~05/28/17 Ferrous Sulfate [Feosol 325 MG tab] 325 mg PO BID #60 tablet 05/31/17 Unknown Rx HYDROcodone/APAP 5-325 [[place] 1 each PO Q6HR PRN #30 tablet 05/31/17 Unknown Rx 5/325] Ibuprofen [Motrin] 800 mg PO Q8HR PRN #30 tablet 05/31/17 Unknown Rx Pnv No.95/Ferrous Fum/Folic AC 1 each PO DAILY #30 tablet 05/31/17 Unknown Rx [Prenavite Tablet] Ibuprofen [Motrin] 800 mg PO Q8HR PRN #20 tablet 10/24/18 Unknown Rx Sulfamethoxazole/Trimethoprim 1 each PO BID #14 tablet 10/24/18 Unknown Rx [Bactrim DS TAB] traMADol [Ultram] 50 mg PO Q6HR PRN #12 tablet 10/24/18 Unknown Rx Allergies Allergy/AdvReac Type Severity Reaction Status Date / Time acetaminophen [From Tylenol] Allergy Unknown Verified 10/24/18 13:01 ED Review of Systems ROS: Stated complaint: LFT HAND INJURY/PAIN Other details as noted in HPI Comment: All other systems reviewed and negative ED Past Medical Hx - Past Medical History Hx Hypertension: No Hx Heart Attack/AMI: No Hx Congestive Heart Failure: No Hx Diabetes: No Hx Deep Vein Thrombosis: No Hx Renal Disease: No Hx Sickle Cell Disease: No Hx Seizures: No Hx Asthma: No Hx COPD: No Hx HIV: No Additional medical history: BRONCHITIS - Surgical History Additional Surgical History: cervical wart removal, X2, LEEP - Social History Smoking Status: Never Smoker Substance Use Type: None - Medications Home Medications: Home Medications Medication Instructions Recorded Confirmed Last Taken Type Acetaminophen/Codeine [Tylenol #3] 1 tab PO Q6H PRN #12 tab 02/23/17 05/31/17 3 Days Ago Rx ~05/28/17 Ondansetron [Zofran TAB] 4 mg PO Q8HR PRN 05/18/17 05/31/17 3 Days Ago History ~05/28/17 Ferrous Sulfate [Feosol 325 MG tab] 325 mg PO BID #60 tablet 05/31/17 Unknown Rx HYDROcodone/APAP 5-325 [[place] 1 each PO Q6HR PRN #30 tablet 05/31/17 Unknown Rx 5/325] Ibuprofen [Motrin] 800 mg PO Q8HR PRN #30 tablet 05/31/17 Unknown Rx Pnv No.95/Ferrous Fum/Folic AC 1 each PO DAILY #30 tablet 05/31/17 Unknown Rx [Prenavite Tablet] Ibuprofen [Motrin] 800 mg PO Q8HR PRN #20 tablet 10/24/18 Unknown Rx Sulfamethoxazole/Trimethoprim 1 each PO BID #14 tablet 10/24/18 Unknown Rx [Bactrim DS TAB] traMADol [Ultram] 50 mg PO Q6HR PRN #12 tablet 10/24/18 Unknown Rx ED Physical Exam - General Limitations: No Limitations General appearance: alert, in no apparent distress - Head Head exam: Present: atraumatic, normocephalic - Eye Eye exam: Present: normal appearance - ENT ENT exam: Present: mucous membranes moist - Neck Neck exam: Present: normal inspection - Respiratory Respiratory exam: Present: normal lung sounds bilaterally. Absent: respiratory distress - Cardiovascular Cardiovascular Exam: Present: regular rate, normal rhythm. Absent: systolic murmur, diastolic murmur, rubs, gallop - GI/Abdominal GI/Abdominal exam: Present: soft, normal bowel sounds - Extremities Exam Extremities exam: Present: normal inspection, tenderness (patient with tenderness and swelling to the distal third of the left hand on the volar and dorsal surface. There is a small area of nodularity felt approximately an inch proximal to the MCP joint of the fourth digit.) - Back Exam Back exam: Present: normal inspection - Neurological Exam Neurological exam: Present: alert, oriented X3 - Psychiatric Psychiatric exam: Present: normal affect, normal mood - Skin Skin exam: Present: warm, dry, intact, normal color. Absent: rash ED Course Vital Signs 10/24/18 13:09 Temperature 98.6 F Pulse Rate 72 Respiratory 18 Rate Blood Pressure 125/68 O2 Sat by Pulse 100 Oximetry ED Medical Decision Making - Radiology Data X-rays within normal limits over the left hand - Medical Decision Making Patient with a small likely ganglion cyst of the mid palm however there is some swelling and mild erythema this could be area with slight infection as well. Patient started on antibiotics pain management patient placed in splint. Critical care attestation.: If time is entered above; I have spent that time in minutes in the direct care of this critically ill patient, excluding procedure time. ED Disposition Clinical Impression: Ganglion cyst, Cellulitis of hand Disposition: DC-01 TO HOME OR SELFCARE Is pt being admited?: No Does the pt Need Aspirin: No Condition: Stable Instructions: Ganglion Cysts (ED), Cellulitis (ED) Referrals: JOHANNA GARCIA MD [Primary Care Provider] - 3-5 Days Time of Disposition: 14:59
== END 2018-10-24 15:13 | disposition home or self-care (01) ==
LOC: ED 12:56
DX: M67.442 Ganglion, left hand (principal); L03.114 Cellulitis of left upper limb; Z79.899 Other long term (current) drug therapy; Z88.6 Allergy status to analgesic agent
CPT/HCPCS: 99283

== ENCOUNTER 2019-01-23 11:36 | Emergency (ER) | payer SELFPAY ==
--- NOTE | 2019-01-23 11:53 | Emergency Department Report ---
Blank Doc - Documentation Documentation: This is a 24-year-old female that presents with sore throat and left enlargement lymph node. This initial assessment/diagnostic orders/clinical plan/treatment(s) is/are subject to change based on patient's health status, clinical progression and re- assessment by fellow clinical providers in the ED. Further treatment and workup at subsequent clinical providers discretion. Patient/guardians urged not to elope from the ED as their condition may be serious if not clinically assessed and managed. Initial orders include: 1- Patient sent to [facility] for further evaluation and treatment 2- strep swab
--- NOTE | 2019-01-23 12:18 | Emergency Department Report ---
HPI - General Chief Complaint: Sore Throat Time Seen by Provider: 01/23/19 11:49 - HPI HPI: 24-year-old -[place] female presents to the emergency department with complaint of a 2 day history of a sore throat along with some swelling to the left side of the neck. She says that she had a fever with a MAXIMUM TEMPERATURE of 102 yesterday. She has not taken any medication or any antipyretics. She denies any past medical history. She also complains of some left lower posterior wisdom tooth dental pain that has been going on for the past 4 days. She does not have a primary care physician. Denies tobacco use. No recent travel. ED Past Medical Hx - Past Medical History Hx Hypertension: No Hx Heart Attack/AMI: No Hx Congestive Heart Failure: No Hx Diabetes: No Hx Deep Vein Thrombosis: No Hx Renal Disease: No Hx Sickle Cell Disease: No Hx Seizures: No Hx Asthma: No Hx COPD: No Hx HIV: No Additional medical history: BRONCHITIS - Surgical History Additional Surgical History: cervical wart removal, X2, LEEP - Social History Smoking Status: Current Every Day Smoker Substance Use Type: None - Medications Home Medications: Home Medications Medication Instructions Recorded Confirmed Last Taken Type Acetaminophen/Codeine [Tylenol #3] 1 tab PO Q6H PRN #12 tab 02/23/17 05/31/17 3 Days Ago Rx ~05/28/17 Ondansetron [Zofran TAB] 4 mg PO Q8HR PRN 05/18/17 05/31/17 3 Days Ago History ~05/28/17 Ferrous Sulfate [Feosol 325 MG tab] 325 mg PO BID #60 tablet 05/31/17 Unknown Rx HYDROcodone/APAP 5-325 [[place] 1 each PO Q6HR PRN #30 tablet 05/31/17 Unknown Rx 5/325] Ibuprofen [Motrin] 800 mg PO Q8HR PRN #30 tablet 05/31/17 Unknown Rx Pnv No.95/Ferrous Fum/Folic AC 1 each PO DAILY #30 tablet 05/31/17 Unknown Rx [Prenavite Tablet] Ibuprofen [Motrin] 800 mg PO Q8HR PRN #20 tablet 10/24/18 Unknown Rx traMADol [Ultram] 50 mg PO Q6HR PRN #12 tablet 10/24/18 Unknown Rx Sulfamethoxazole/Trimethoprim 1 each PO BID #14 tablet 01/23/19 Unknown Rx [Bactrim DS TAB] ED Review of Systems ROS: Stated complaint: GLANDS SWELLING/PAIN Other details as noted in HPI Constitutional: chills, fever Eyes: denies: eye pain, vision change ENT: throat pain, dental pain Respiratory: denies: cough, shortness of breath Cardiovascular: denies: chest pain, palpitations Gastrointestinal: denies: abdominal pain, vomiting Genitourinary: denies: dysuria, discharge Musculoskeletal: denies: back pain, arthralgia Skin: denies: rash, lesions Neurological: denies: headache, weakness Physical Exam - Physical Exam Vital Signs: Vital Signs 01/23/19 11:51 Temperature 98.0 F Pulse Rate 74 Respiratory 16 Rate Blood Pressure 131/62 O2 Sat by Pulse 100 Oximetry Physical Exam: GENERAL: The patient is well-developed well-nourished. HENT: Normocephalic. Atraumatic. Patient has moist mucous membranes. There is bilateral tonsillar hypertrophy and mild erythema. No exudates. No drooling or trismus. There is some tenderness to palpation to the left lower posterior molars, near the wisdom tooth. No visible or palpable dental abscess. EYES: Extraocular motions are intact. Pupils equal reactive to light bilaterally. NECK: Supple. Trachea is midline. The patient has a few different tender but mobile lymph nodes to the lateral cervical chain and 1 submandibular. CHEST/LUNGS: Clear to auscultation. There is no respiratory distress noted. HEART/CARDIOVASCULAR: Regular. There is no tachycardia. There is no murmur. ABDOMEN: There is no abdominal distention. SKIN: Skin is warm and dry. NEURO: The patient is awake, alert, and oriented. The patient is cooperative. The patient has no focal neurologic deficits. The patient has normal speech. MUSCULOSKELETAL: There is no tenderness or deformity. There is no evidence of acute injury. ED Course Vital Signs 01/23/19 11:51 Temperature 98.0 F Pulse Rate 74 Respiratory 16 Rate Blood Pressure 131/62 O2 Sat by Pulse 100 Oximetry ED Medical Decision Making - Lab Data Result diagrams: 01/23/19 12:20 - Medical Decision Making Patient presents with a sore throat and concern for some tender swollen areas to the left side of the neck. It appears most consistent with lymphadenopathy. Tonsils are enlarged and slightly erythematous but no exudates. She also has a complaint of some pain towards the left lower posterior tooth which is tender to palpation but no visible or palpable abscess seen. No drooling or trismus. She has no leukocytosis. Vital signs stable including being afebrile. She will be treated empirically for both possible strep pharyngitis and to avoid dental abscess. She's been instructed to follow-up with primary care and dentist. She will return to the ER with any worsening of her symptoms or any acute distress. - Differential Diagnosis dental abscess, strep pharyngitis, viral pharyngitis Critical Care Time: No Critical care attestation.: If time is entered above; I have spent that time in minutes in the direct care of this critically ill patient, excluding procedure time. ED Disposition Clinical Impression: Dentalgia Pharyngitis Qualifiers: Pharyngitis/tonsillitis etiology: unspecified etiology Qualified Code(s): J02.9 - Acute pharyngitis, unspecified Disposition: - TO HOME OR SELFCARE Is pt being admited?: No Condition: Stable Instructions: Pharyngitis (ED), Toothache (ED) Additional Instructions: Please follow up with a primary care physician and a dentist in the next few days. Return to the emergency Department with any worsening of your symptoms or any acute distress. You can take Tylenol every 4 hours and ibuprofen every 6 hours, using weight-ba sed dosing on the back of the bottle, as needed for fever or discomfort. Prescriptions: Sulfamethoxazole/Trimethoprim [Bactrim DS TAB] 1 each PO BID #14 tablet Referrals: JOCELYN PAGE DO [Staff Physician] - 2-3 Days [facility] [Outside] - 2-3 Days [facility] [Outside] - 3-5 Days Time of Disposition: 13:00
[2019-01-23 12:46] LABS: Basophils % (Auto) 0.6 % (0.0-1.8); Eosinophils # (Auto) 0.5 K/mm3 (0.0-0.4); Eosinophils % (Auto) 7.5 % (0.0-4.3); Hemoglobin 15.3 gm/dl (10.1-14.3); Lymphocytes % (Auto) 27.4 % (13.4-35.0); Mean Corpuscular HGB Conc 35 % (30-34); Mean Corpuscular Volume 92 fl (79-97); Monocytes # (Auto) 0.7 K/mm3 (0.0-0.8); Monocytes % (Auto) 9.1 % (0.0-7.3); Platelet Count 215 K/mm3 (140-440); Red Blood Count 4.81 M/mm3 (3.65-5.03); Red Cell Distribution Width 13.6 % (13.2-15.2)
[2019-01-23 13:05] VITALS: BP 130/60
== END 2019-01-23 13:04 | disposition home or self-care (01) ==
LOC: ED 11:36
DX: K08.89 Other specified disorders of teeth and supporting structures (principal); J02.9 Acute pharyngitis, unspecified; F17.200 Nicotine dependence, unspecified, uncomplicated; Z88.6 Allergy status to analgesic agent
CPT/HCPCS: 36415; 85025; 87116; 87430; 99283

== ENCOUNTER 2019-05-07 20:19 | Emergency (ER) | payer SELFPAY ==
--- NOTE | 2019-05-07 20:44 | Emergency Department Report ---
Blank Doc - Documentation Documentation: 24-year-old female that presents with headache and a syncopal episode. This initial assessment/diagnostic orders/clinical plan/treatment(s) is/are subject to change based on patient's health status, clinical progression and re- assessment by fellow clinical providers in the ED. Further treatment and workup at subsequent clinical providers discretion. Patient/guardians urged not to elope from the ED as their condition may be serious if not clinically assessed and managed. Initial orders include: 1- Patient sent to [facility] for further evaluation and treatment 2- EKG 3- labs 4- CT head 5- UA
[2019-05-07 20:48] VITALS: BP 129/84
== END 2019-05-07 21:15 | disposition left against medical advice (07) ==
LOC: ED 20:19
DX: R51 Headache (principal); Z53.21 Procedure and treatment not carried out due to patient leaving prior to being seen by health care provider

== ENCOUNTER 2021-11-26 00:56 | Emergency (ER) | payer OTHER ==
[2021-11-26 01:17] VITALS: BP 143/79
== END 2021-11-26 03:00 | disposition left against medical advice (07) ==
LOC: ED 00:56
DX: L02.91 Cutaneous abscess, unspecified (principal); Z53.21 Procedure and treatment not carried out due to patient leaving prior to being seen by health care provider